=== PATIENT | female | born 1985 | race Caucasian/White ===

== ENCOUNTER → 2016-10-29 | Outpatient (CLI) | payer BC ==
[~2016-10-29] MED LIST: IBUP-1547 PO; PREN-92 PO
--- NOTE | 2016-10-29 12:54 | DI ---
Indication: ITS.REASON: O36.62X Maternal care for excessive growth PROCEDURE: US OB COMPLETE >/= 14WKS: Encounter: Initial Age by provided LMP is 21 weeks and 1 days correlating to an CHIVO of March 10, 2017. Comparison: None PROCEDURE: US OB COMPLETE >/= 14WKS: Technique: Grayscale and color Doppler transabdominal sonographic imaging was performed. Findings: There is a single living intrauterine gestation in breech lie. Placenta is posterior without previa. Quantity of amniotic fluid is normal. The cervix is normal length and closed. Amniotic fluid index is normal at 14.2 cm. Largest vertical pocket in the right upper quadrant is 4.7 cm. Survey of anatomy, including lateral ventricles, cavum septum, posterior fossa, spine, four chamber view of the heart, stomach, kidneys, bladder, and three vessel orthotopic cord insertion are normal. In addition, all long bones in both upper and lower extremities and both hands and feet are present. Coronal view of the nose and lips and sagittal facial profile are unremarkable. heart beats regularly at 136 beats per minute. biometry: Biparietal diameter: 4.65 cm 20 weeks and 1 days (11 percentile). Head circumference: 18.35 cm 20 weeks and 6 days (23 percentile). Abdominal circumference: 15.97 cm 21 weeks and 1 days (48 percentile). Femur Length: 3.66 cm 21 weeks and 5 days (58 percentile). biometrics are internally concordant and consistent with an estimated gestational age of 21 weeks and 0 days. Estimated weight is 408 grams (49 percentile by LMP and 57 percentile by AUA method). Impression: 1. Single living intrauterine gestation with age by provided LMP of 21 weeks and 1 days. This correlates to an CHIVO of March 10, 2017. 2. Best estimate of gestational age on today's exam is 21 weeks and 0 days, correlating to an CHIVO of March 11, 2017. 3. Normal survey of anatomy. .
== END ==
LOC: IMA 10:41
PROVIDERS: ATTEND Obstetrics & Gynecology
DX: O36.62X0 Maternal care for excessive fetal growth, second trimester, not applicable or unspecified (principal)

== ENCOUNTER 2017-03-12 06:00 | Inpatient (IN) ==
[2017-03-12] MEDS ORDERED: LIDOCAINE 1% (10mg/ml) 2mL INJ PF SDV ID PRN (06:12)
[2017-03-12] MEDS ORDERED: MAG-AL + SIM ORAL LIQUID 30ml PO PRN (06:12)
[2017-03-12] MEDS ORDERED: D5LR 1,000 ML IV PRN (06:12)
[2017-03-12] MEDS ORDERED: OXYTOCIN DRIP 30 UNIT/500 ML ML IV PRN (06:12)
[2017-03-12] MEDS ORDERED: CARBOPROST 250 MCG/ML INJECTION IM PRN (06:12)
[2017-03-12] MEDS ORDERED: LR 1,000 ML IV PRN (06:12)
[2017-03-12] MEDS ORDERED: CALCIUM CARBONATE Chewable 500mg TABLET PO PRN (06:12)
[2017-03-12] MEDS ORDERED: ACETAMINOPHEN 500 MG TABLET PO PRN (06:12)
[2017-03-12] MEDS ORDERED: METHYLERGONOVINE 0.2 MG/ML INJECTION IM PRN (06:12)
--- OUTSIDE RECORDS SUMMARY | 2017-03-12 06:13 | External Medical Summary | Continuity of Care Document ---
:1985 Author Organization [facility] Address [address] [place], [place] [id number] Phone Support Name Relationship Address Phone Tatiana Day spouse [address] [place] [address] [phone] [place] [address] Allergies, Adverse Reactions, Alerts Substance Reaction Severity Status No Known Drug Allergies Unknown Active Medications Medication Instructions Dosage Effective Dates Status Comments (start - stop) 28 mg take 1 by Oral route Not Available - Active iron-800 mcg every day tablet Problems Condition Effective Dates (start - stop) Clinical Status Pap Smear Screening, Cervix - Follow-Up, Routine - Encounter for suprvsn of normal - , third trimester 32 weeks gestation of - Encntr screen for infections w sexl - mode of transmiss Encounter for screening for oth - infec/parastc diseases Encounter for suprvsn of normal - , first trimester 10 weeks gestation of - Encounter for screening of - mother Maternal care for excess growth, - second tri, unsp Encounter for suprvsn of normal - , second trimester 17 weeks gestation of - Velamentous insertion of umbilical - cord, third trimester Velamentous insertion of umbilical cord, third tri Velamentous insertion of umbilical cord, third tri Exposure to cat feces Pap Smear Screening, Cervix 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) - (routine) w/o abn findings Encounter for suprvsn of normal - , second trimester 21 weeks gestation of - Encounter for suprvsn of normal - , second trimester 25 weeks gestation of - 28 weeks gestation of - Encounter for suprvsn of normal - , third trimester Encounter for suprvsn of normal - , third trimester 30 weeks gestation of - Encounter for suprvsn of normal - , third trimester 34 weeks gestation of - Active Procedures Procedure Date OB Visit No 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 700 Provider: Health ELLIOT, , third 7 Medical Dez PO Box [email or web address] weeks Hospers Ty Raya, 1522, gestation of [place] Bravo, 120, [facility] [place] [facility] [id number], [place], [facility] 120, [place] [id number] [place], tel: , . LYNN, tel: [phone]. [id number] tel:[phone] Ysabel Peter Encounter for Ty Referring In Womens suprvsn of normal 9-201 Dez. 700 Provider: Health ELLIOT, , third 7 Medical Dez PO Box [email or web address] weeks Hospers Ty Raya 1522, gestation of [place] Bravo, 120, Medical [place] [facility] [id number], [place], [facility] 120, [place] [id number] [place], tel: , . LYNN, tel: [phone]. [id number] tel:[phone] Ysabel Peter Encounter for Ty Referring In Womens suprvsn of normal 6-201 Dez. 700 Provider: Health ELLIOT, , third 7 Medical Dez PO Box [email or web address] weeks Center Ty Raya, 1522, gestation of [place] Bravo, 120, Medical [place] [facility] [id number], [place], [place] 120, [place] [id number] [place], tel: , [place]. [place], tel: [phone]. [id number] tel:[phone] Ysabel Peter 28 weeks Dec- Ty Referring In Womens gestation of 3-201 Dez. 700 Provider: Health ELLIOT, pregnancyEncounte 7 Medical Dez PO Box r for suprvsn of Hospers Ty R, 1522, normal , [place] Bravo, third trimester 120, Medical [place] [facility] [id number], [place], [place] 120, [place] [id number] [place], tel: , [place]. [place], tel: [phone]. [id number] tel:[phone] Ysabel Peter Encounter for Gurjit-2 Ty Referring In Womens suprvsn of normal 2-201 [place]. 700 Provider: Cami ZARATE, , second 7 Medical Dez PO Box [email or web address] weeks Center Ty R, 1522, gestation of [place] Bravo, 120, Medical [place] [facility] [id number], [place], [place] 120, [place] [id number] [place], tel: , [place]. [place], tel: [phone]. [id number] tel:[phone] Ysabel Peter Encounter for May-2 Ty Referring In Womens suprvsn of normal 3-201 [place]. 700 Provider: Cami ZARATE, , second 7 Medical Dez PO Box [email or web address] weeks Center Ty R, 1522, gestation of [place] Bravo, 120, Medical [place] [facility] [id number], [place], [place], [place] [id number] [place], tel: , [place]. [place], tel: [phone]. [id number] tel:[phone] Ysabel Peter Maternal care for Apr-2 Ty Referring In Womens excess 7-201 Dez. 700 Provider: Health ELLIOT, growth, second 7 Medical Dez PO Box tri, Center Ty R, 1522, unspEncounter for [place] Bravo, suprvsn of normal 120, Medical [place], , second [facility] [id number], [email or web address] weeks [place], [facility] 120, [place] gestation of [id number] [place], tel: , [place]. [place], tel:[phone]. [id number] tel:[phone] Ysabel Peter Encntr screen for Mar-0 Ty Referring In Womens infections w sexl 7- [place]. 700 Provider: Cami ZARATE, mode of 7 [facility], 1522, r for screening , [place] [address] [place], for oth 120, Medical [place], [facility] [id number], diseasesEncounter [place], [facility] 120, [place] for suprvsn of [id number] [place], tel: normal , , [place]. [place], first [email or web address] tel:[phone]. weeks gestation [id number] tel: of [phone] pregnancyEncounte r for screening of mother Ysabel Peter Pap Smear Dec- Sophia Referring In Womens Screening, [place]. Provider: Cami ZARATE, CervixPap Smear [address] [place] [address] Screening, [facility] Ty R, 1522, CervixEncntr for [place] [address] [place], commercial housekeeper exam , [facility], (general) 120, Hospers [id number], (routine) w/o abn [place], [facility] 120, [place] findings [place], tel:[phone] [place], , [place]. [id number]. tel: tel: [phone] Ysabel Peter May-1 Ty Referring In Womens Follow-Up, 0-201 [place]. 700 Provider: Cami ZARATE, Routine 6 [facility] Ty Raya, 1522, Dr [place] [address] [place], 120, Medical [place] [facility] [id number], [place], [facility] 120, [place] [id number] [place], tel: , [place]. [place], tel:[phone]. [id number] tel:[phone] Ysabel Peter Velamentous Mar-0 Bled[place] Referring In Womens insertion of 9-201 [place]. Provider: Cami ZARATE, umbilical cord, 6 700 Dez PO Box third tri [facility] Ty R, 1522, Center [address], [facility], 120, Hospers [id number], [place], [facility] 120, [place] BAILEY, tel:+ [phone] [place], , [place]. [id number]. tel: tel:+ [phone] Associates [place] Velamentous Mar-0 Ty Referring In Womens Ultrasound insertion of 9-201 Dez. 700 Provider: Cami ZARATE, umbilical cord, 6 Medical Dez PO Box third trimester Center Ty R, 1522, , [place] 700 [place], 120, Medical [place] [facility] [id number], [place], [facility] 120, [place] [id number] [place], tel:+ , [place]. [place], tel: [phone]. [id number] tel:[phone] Ysabel Peter Velamentous Feb-2 Ty Referring In Womens insertion of 5-201 Dez. 700 Provider: Cami ZARATE, umbilical cord, 6 Medical Dez PO Box third tri Hospers Ty R, 1522, , [place] [address] [place], 120, Medical [place] [facility] [id number], [place], [facility] 120, [place] [id number] [place], tel:+ , [place]. [place], tel: [phone]. [id number] tel:[phone] Ysabel Peter Exposure to cat David-2 Ty Referring In Womens feces 8-201 Dez. 700 Provider: Cami ZARATE, 6 [facility] Box Hospers Ty R, 1522, , [place] 700 [place], 120, Medical [place] [facility] [id number], [place], [facility] 120, [place] [id number] [place], tel: , [place]. [place], tel: [phone]. [id number] tel:[phone] Ysabel Peter Oct-2 Ty Referring In Womens 2-201 Dez. 700 Provider: Cami ZARATE, 5 Medical [facility] Box Center Ty Raya, 1522, , [place] Jacqueline Paige, 120, Medical [place] BAILEY, Hospers [id number], [place], [place] 120, [place] [id number] [place], tel: , [place]. [place], tel: [phone]. [id number] tel:[phone] [facility] In Womens 9-201 [facility], 3 700 [facility] 1522, Hospers Dr Grec[place], [place], 120, [id number], Peter, [facility], tel: [phone] , [place]. tel: [phone] Family History Family Member Diagnosis Age At Onset Maternal Grandfather Cancer, colon No family history of Lung Disease Paternal Grandfather Diabetes mellitus No family history of Osteoporosis No family history of Uterine Cancer No family history of Venous Thrombosis No family history of Stroke No family history of Epilepsy No family history of Ovarian Cancer Paternal Grandfather Cardiovascular Disease No family history of Hypertension No family history of Pulmonary Embolism No family history of Breast Cancer No family history of Kidney Problems No family history of Thyroid Disorder Immunizations Vaccine Date Status Comments Tdap completed Source: New Immunization Record Influenza, seasonal, injectable, completed Source: New Immunization Record preservative free, 3 yrs or older Payers Payer name Insurance type Covered republican ID Authorization(s) [facility] [id number] [facility] [id number] [facility] [id number] Social History Type Description Quantity Date Captured Alcohol Use Details No Caffeine Use Details Unknown Tobacco Use Status Unknown Smoking Status Never smoker Vital Signs Date / Height Weight BMI Pulse Blood Temperature Respiratory Body Head BMI Time: Rate Pressure Rate Surface Circumference percentile Area 247.50 38.7 lbs 6 mm[Hg] 4:13 kg/m PM eter (2) Chief Complaint And Reason For Visit Unknown Chief Complaint And Reason For Visit Reason For Referral Reason For Referral Unknown Plan Of Care Date Type Action Status Goal Lifestyle education regarding completed diet Appointment Laura Day BOOKED Appointment Luara Day BOOKED Appointment Laura Day BOOKED Future Order: Radiology Order Ultrasound OB Follow-up ([id number]) Ordered Future Order: Lab Order Pap Smear With HPV Reflex If Ordered ASCUS ([id number]) Date Type Problem Goal Intervention Status Start Date Unknown. History Of Present Illness Encounter Date Complaint History Of Present Illness This patient has no known history of present illness Functional Status Encounter Date Functional Assessment Cognitive Assessment Unknown Medications Administered Medication Instructions Dosage Effective Dates (start - stop) Status Comments Drug Treatment Unknown Instructions Date Instruction Additional Information toxoplasmosis precautions (cats / raw meat) sexual activity exercise indications for ultrasound influenza vaccine environmental / work hazards travel use of any medications (including supplements, vitamins, herbs, OTC drugs) domestic violence seat belt use childbirth classes / hospital facilities hospital registration HIV and other routine tests risk factors identified by history anticipated course of care nutrition and weight gain counseling, special diet genetic testing Lifestyle education regarding diet Related to Body mass index 34.0-34.9 Giving encouragement to exercise Related to Body mass index 34.0-34.9
--- OUTSIDE RECORDS SUMMARY | 2017-03-12 06:13 | External Medical Summary | Continuity of Care Document ---
:1985 Author Organization [facility] Allergies Active Description Code Type Severity Reaction Onset Reported/ Identified Relationship Clinical to Patient Status Yes No Known 97392 3 N/A N/A Drug 0 Allergies Medications Medication Packaging Start Date Stop Date Route Dosage Sig Capsule 10/06/2015 10/12/2015 CEPHALEXIN take 1 capsule by ORAL route 4 times every day for 7 days Problems Date Dx Coded Attending Type Code Diagnosis Diagnosed By 05/01/2015 Dez Crawford Z34.82 Encounter for suprvsn of normal , second trimester 05/01/2015 Dez Crawford Z3A.20 20 weeks gestation of 08/16/2015 Dez Crawford O43.123 Velamentous insertion of umbilical cord, third trimester 08/16/2015 Dez Crawford3A.35 35 weeks gestation of 08/16/2015 Christi Bledsoe O43.123 Velamentous insertion of umbilical cord, third tri 08/16/2015 Christi Bledsoe Z36 Screening 08/16/2015 Christi Bledsoe3A.35 35 weeks gestation of Procedures Code Description Performed By Performed On 05/01/2015 74026 Ultrasnd exam of preg uterus, compl 08/16/2015 41675 Ultrasnd preg uterus, flwup/repeat OB 08/16/2015 31639 Visit No Charge Results Encounters ACCT No. Visit Discharge Status Pt. Type Provider Facility Loc./Unit Complaint Date/Time [id number] 02/19/2017 02/19/2017 [facility] Outpatient Ty, 16:15:00 23:59:59 Dez Raya [id number] 01/30/2017 01/30/2017 [facility] Outpatient Ty, 13:30:00 23:59:59 Dez Raya [id number] 01/15/2017 01/15/2017 [facility] Outpatient Ty, 16:15:00 23:59:59 Dez Raya [id number] 01/01/2017 01/01/2017 [facility] Out[facility] Ty, 16:30:00 23:59:59 Dez Raya [id number] 12/31/2016 12/31/2016 [facility] Outpatient Ty, 15:53:00 23:59:59 Dez Raya [id number] 12/19/2016 12/19/2016 [facility] Outpatient Ty, 10:40:00 23:59:59 Dez Raya [id number] 11/28/2016 11/28/2016 [facility] Outpatient Ty, 09:30:00 23:59:59 Dez Raya [id number] 10/29/2016 10/29/2016 [facility] Outpatient Ty, 11:30:00 23:59:59 Dez Raya [id number] 10/29/2016 10/29/2016 [facility] Outpatient Ty, 08:20:00 23:59:59 Dez Raya [id number] 10/03/2016 10/03/2016 [facility] Outpatient Ty, 09:45:00 23:59:59 Dez Raya [id number] 08/13/2016 08/13/2016 [facility] Outpatient Ty, 09:00:00 23:59:59 Dez Raya [id number] 07/18/2016 07/18/2016 [facility] Outpatient Ty, 14:19:00 23:59:59 Dez Raya [id number] 01/03/2016 01/03/2016 [facility] Outpatient Sophia, 11:00:00 23:59:59 [place] [id number] 10/17/2015 10/17/2015 [facility] Outpatient Ty, 10:00:00 23:59:59 Dez Raya [id number] 10/06/2015 10/06/2015 [facility] Outpatient Ty, 11:26:00 23:59:59 Dez Raya [id number] 09/11/2015 09/11/2015 [facility] Outpatient Ty, 13:47:00 23:59:59 Dez Raya [id number] 09/06/2015 09/06/2015 [facility] Outpatient Ty, 16:30:00 23:59:59 Dez Raya [id number] 08/31/2015 08/31/2015 [facility] Outpatient Ty, 09:00:00 23:59:59 Dez Raya [id number] 08/23/2015 08/23/2015 [facility] Outpatient Ty, 16:30:00 23:59:59 Dez Raya [id number] 08/16/2015 08/16/2015 [facility] Outpatient Bledsoe, 09:15:00 23:59:59 Christi Short [id number] 08/16/2015 08/16/2015 [facility] Outpatient Ty, 08:45:00 23:59:59 Dez Raya [id number] 08/03/2015 08/03/2015 [facility] Outpatient Ty, 09:10:00 23:59:59 Dez Raya [id number] 07/19/2015 07/19/2015 [facility] Outpatient Ty, 16:05:00 23:59:59 Dez Raya [id number] 07/19/2015 07/19/2015 [facility] Outpatient Ty, 00:00:00 23:59:59 Dez Raya [id number] 07/12/2015 07/12/2015 [facility] Outpatient Ty, 14:48:00 23:59:59 Dez Raya [id number] 07/06/2015 07/06/2015 [facility] Outpatient Ty, 09:30:00 23:59:59 Dez Raya [id number] 06/01/2015 06/01/2015 [facility] Outpatient Ty, 09:30:00 23:59:59 Dez Raya [id number] 05/01/2015 05/01/2015 [facility] Outpatient Ty, 09:00:00 23:59:59 Dez Raya [id number] 05/01/2015 05/01/2015 [facility] Outpatient Ty, 08:45:00 23:59:59 Dez Raya [id number] 03/30/2015 03/30/2015 [facility] Outpatient Ty, 09:00:00 23:59:59 Dez Raya [id number] 03/30/2015 03/30/2015 [facility] Outpatient Ty, 00:00:00 23:59:59 Dez Raya [id number] 03/07/2015 03/07/2015 [facility] Outpatient Ty, 10:01:00 23:59:59 Dez Raya [id number] 03/02/2015 03/02/2015 [facility] Outpatient Ty, 14:40:00 23:59:59 Dez Raya [id number] 02/07/2015 02/07/2015 [facility] Outpatient Ty, 10:52:00 23:59:59 Dez Raya [id number] 03/06/2017 Document 10:30:00 Registration [id number] 02/26/2017 Document 16:15:00 Registration
--- OUTSIDE RECORDS SUMMARY | 2017-03-12 06:13 | External Medical Summary | Continuity of Care Document ---
:1985 Author Organization [facility] Address [address] [place], [place] [id number] Phone Support Name Relationship Address Phone Tatiana Day spouse Venkatesh Chualar [phone] [place] [address] Allergies, Adverse Reactions, Alerts Substance Reaction Severity Status No Known Drug Allergies Unknown Active Medications Medication Instructions Dosage Effective Dates Status Comments (start - stop) 28 mg take 1 by Oral route Not Available - Active iron-800 mcg every day tablet Problems Condition Effective Dates (start - stop) Clinical Status Pap Smear Screening, Cervix - Follow-Up, Routine - Encntr screen for infections w sexl - mode of transmiss Encounter for screening for oth - infec/parastc diseases Encounter for suprvsn of normal - , first trimester Encounter for screening of - mother 10 weeks gestation of - Maternal care for excess growth, - second tri, unsp Encounter for suprvsn of normal - , second trimester 17 weeks gestation of - Velamentous insertion of umbilical - cord, third trimester Velamentous insertion of umbilical cord, third tri Velamentous insertion of umbilical cord, third tri Exposure to cat feces 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 Pap Smear Screening, Cervix Encounter for suprvsn of normal - , second trimester 25 weeks gestation of - Encounter for suprvsn of normal - , second trimester 21 weeks gestation of - Encounter for suprvsn of normal - , third trimester 32 weeks gestation of - Encounter for suprvsn of normal - , third trimester 30 weeks gestation of - Encounter for suprvsn of normal - , third trimester 28 weeks gestation of - Active Procedures Procedure Date Unknown Results Test Name Date and Time Measure Units Reference Range Abnormal Flag Comments Unknown Advance Directives Directive Yes / No Effective Date File Name Unknown Encounters Encounter Practice Location Reason(s) Diagnoses Date Provider Care Team Description For Visit Members Ysabel Peter Encounter for Ty Referring In Womens suprvsn of normal 9-201 Dez. 700 Provider: Health PA, , third 7 Medical Dez [address] [email or web address] weeks Center Ty Raya, 1522, gestation of [place] Bravo, 120, [facility] [id number], [facility] 120, [place] [id number] [place], tel: , . LYNN, tel: [phone]. [id number] tel:[phone] Ysabel Peter Encounter for Surinder-2 Ty Referring In Womens suprvsn of normal 6-201 [place]z. 700 Provider: Health ELLIOT, , third 7 Medical Dez PO Box [email or web address] weeks Center Ty Raya, 1522, gestation of [place] Bravo, 120, [facility] [place] [facility] [id number], [facility] 120, [id number] [place], tel: , . LYNN, tel: [phone]. [id number] tel:[phone] Ysabel Peter Surinder-2 Ty In Womens 5-201 Dez. 700 Health ELLIOT, 7 Medical PO Box Center 1522, [place] Bravo, 120, [place] [id number], [id number] tel: , . tel: [phone] Ysabel Peter Encounter for Surinder-1 Ty Referring In Womens suprvsn of normal 3-201 [place]z. 700 Provider: Health PA, , third 7 Medical Dez PO Box [email or web address] weeks Center Ty R, 1522, gestation of [place] Bravo [place], 120, [facility] [id number], [place], [facility] 120, [place] [id number] [place], tel: , [place]. [place], tel: [phone]. [id number] tel:[phone] Ysabel Peter Encounter for Gurjit-2 Ty Referring In Womens suprvsn of normal 2-201 [place]. 700 Provider: Cami ZARATE, , second 7 Medical Dez PO Box [email or web address] weeks Center Ty R, 1522, gestation of [place] Bravo, 120, [facility] [id number], [facility] 120, [id number] [place], tel: , [place]. [place], tel: [phone]. [id number] tel:[phone] Ysabel Peter Encounter for May-2 Ty Referring In Womens suprvsn of normal 3-201 [place]. 700 Provider: Cami ZARATE, , second 7 Medical Dez PO Box [email or web address] weeks Center Ty R, 1522, gestation of [place] Bravo, 120, [facility] [id number], [facility] 120, [id number] [place], tel: , [place]. [place], tel: [phone]. [id number] tel:[phone] Ysabel Peter Maternal care for Apr-2 Ty Referring In Womens excess 7-201 [place]. 700 Provider: Cami ZARATE, growth, second 7 Medical Dez PO Box tri, Center Ty R, 1522, unspEncounter for [place] Bravo, [facility] normal 120, Medical [place], , second [facility] [id number], [email or web address] weeks LYNN [facility] 120, [place] gestation of [id number] [place], tel: , [place], tel: [phone]. [id number] tel:[phone] Ysabel Peter Encntr screen for Mar-0 Ty Referring In Womens infections w sexl 7-201 [place]. 700 Provider: Health PA, mode of 7 [facility] Box transmissEncounte [place] Ty R, 1522, r for screening , [place] [address] [place], for oth 120, Medical [place], [facility]c [facility] [id number], diseasesEncounter [place], [facility] 120, [place] for suprvsn of [id number] [place], tel:+ normal , , [place]. [place], first tel: [phone]. 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 Provider: Cami ZARATE, (routine) w/o abn [address] [place] [address] findingsPap Smear [facility] Ty R, 1522, Screening, [place] [address] [place], CervixPap Smear , [facility], Screening, Cervix 120, [place] [id number], [facility] 120, [place] B[place]LEY, tel:[phone] [place], , [place]. [id number]. tel: tel: [phone] [facility] [place] October-1 Ty Referring In Womens Follow-Up, 0-201 [place]. 700 Provider: Cami ZARATE, Routine 6 Medical [facility] Ty R, 1522, Dr [facility] Jacqueline Paige, 120, Medical [place] BAILEY Mor Bravo [id number], [place], [facility] 120, [place] [id number] [place], tel: , [place]. [place], tel: [phone]. [id number] tel:[phone] [facility] [place] Velamentous Mar-0 Bledsoe Referring In Womens insertion of 9-201 [place]. Provider: Cami ZARATE, umbilical cord, [address] [place] [address] third tri [facility] Ty R, 1522, Center Jacqueline Paige, , [facility], 120, Center [id number], [facility] 120, [place] B[place], tel:[phone] [place], , [place]. [id number]. tel: tel:[phone] [facility] [place] Velamentous Mar-0 Ty Referring In Womens Ultrasound insertion of - Dez. 700 Provider: Cami ZARATE, umbilical cord, 6 Medical [place] PO Box third trimester Center [address], [place] Jacqueline Paige, 120, Medical [place] BAILEY, [place] [id number], [place], [place] 120, [place] [id number] [place], tel: , [place]. [place], tel: [phone]. [id number] tel:[phone] Ysabel Peter Velamentjuaquin Feb-2 Ty Referring In Womens insertion of 5-201 [place]z. 700 Provider: Cami ZARATE, umbilical cord, 6 Medical [facility] Box third tri Center [address], [place] Jacqueline Paige, 120, Medical [place] [facility] [id number], [place], [place] 120, [place] [id number] [place], tel: , [place]. [place] tel: [phone]. [id number] tel:[phone] Ysabel Peter Exposure to cat David-2 Ty Referring In Womens feces 8-201 [place]z. 700 Provider: Cami ZARATE, 6 Medical [facility] Box Center [address], [place] [address] [place], 120, Medical [place] [facility] [id number], [place], [place] 120, [place] [id number] [place], tel: , [place]. [place], tel: [phone]. [id number] tel:[phone] Ysabel Peter Oct-2 Ty Referring In Womens 2-201 [place]z. 700 Provider: Cami ZARATE, 5 Medical [facility] Box Center [address], [place] Jacqueline Paige, 120, Medical [place] BAILEY, [place] [id number], [place], [place] 120, [place] [id number] [place], tel: , [place]. [place] tel: [phone]. [id number] tel:[phone] Associates Feb-1 Luis Fernando In Womens 9-201 Cande. Cami ZARATE, 3 700 PO Box [facility] 1522, M[address], [place], 120, [id number], [facility] [place], tel:[phone] , . tel: [phone] Family History Family Member Diagnosis Age At [...] older Payers Payer name Insurance type Covered democrat ID Authorization(s) [facility] [id number] [facility] [id number] [facility] [id number] Social History Type Description Quantity Date Captured Unknown Vital Signs Date / Height Weight BMI Pulse Blood Temperature Respiratory Body Head BMI Time: Rate Pressure Rate Surface Circumference percentile Area Unknown Chief Complaint And Reason For Visit Unknown Chief Complaint And Reason For Visit Reason For Referral Reason For Referral Unknown Plan Of Care Date Type Action Status Goal Lifestyle education regarding completed diet Appointment Laura Day BOOKED Future Order: Radiology Order Ultrasound OB Follow-up ([id number]) Ordered Future Order: Lab Order Pap Smear [...] belt use childbirth classes / hospital facilities HIV and other routine tests risk factors identified by history anticipated course of care nutrition and weight gain counseling, special diet hospital registration genetic testing Lifestyle education regarding diet Related to Body mass index 34.0-34.9 Giving encouragement to exercise Related to Body mass index 34.0-34.9
--- OUTSIDE RECORDS SUMMARY | 2017-03-12 06:13 | External Medical Summary | Continuity of Care Document ---
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 Pap Smear Screening, Cervix Encounter for suprvsn of normal - , second trimester 25 weeks gestation of - Encounter for suprvsn of normal - , second trimester 21 weeks gestation of - Encounter for suprvsn of normal - , third trimester 30 weeks gestation of - Active Procedures Procedure Date OB Visit No Charge Hemoglobin count, colorimetric Hematocrit blood count Glucose test Venpnctr fngr/heel/ear stick routne Results Test Name Date and Time Measure Units Reference Range Abnormal Flag Comments Panel Description: Glucose [Mass/volume] in Serum or Plasma --1 hour post 50 g glucose PO GLUCOSE, GESTATIONAL 90 mg/dL <140 N Test performed at [facility] SCREEN (50G)-140 11:21:00 DIAGNOSTICS [id number] [place] [address]Yuwehkbx: DEBBIE HAWK DO,MPH Panel Description: HEMOGLOBIN + HEMATOCRIT HEMOGLOBIN 11:21:00 11.9 g/dL 11.7-15.5 N HEMATOCRIT 11:21:00 35.4 % 35.0-45.0 N Test performed at [facility] [id number] [place] [address]Joyrujpl: DEBBIE HAWK DO,MPH Advance Directives Directive Yes / No Effective Date File Name Unknown Encounters Encounter Practice Location Reason(s) Diagnoses Date Provider Care Team Description For Visit Members Ysabel Peter Encounter for Dec- Ty Referring In Womens suprvsn of normal 6-201 [place]z. 700 Provider: Health PA, , third 7 Medical Dez PO Box [email or web address] weeks Center Ty R, 1522, gestation of [place] Bravo 700 [facility], 120, [facility] [id number], [place], [facility] 120, [place] [id number] [place], tel: , [place]. LYNN, [address]39[address] tel: [phone]. [id number] tel:[phone] Ysabel Peter Encounter for Dec- Ty Referring In Womens suprvsn of normal 3-201 Dez. 700 Provider: Health PA, , third 7 Medical Dez PO Box [email or web address] weeks Center Ty R, 1522, gestation of [place], 120, [facility] [id number], [place], [facility] 120, [place] [id number] [place], tel: , [place]. [place], tel: [phone]. [id number] tel:[phone] Ysabel Peter Encounter for Gurjit-2 Ty Referring In Womens suprvsn of normal 2-201 [place]. 700 Provider: Health ELLIOT, , second 7 Medical Dez PO Box [email or web address] weeks Center Ty R, 1522, gestation of [place] Bravo, 120, [facility] [id number], [facility] 120, [place] [id number] [place], tel: , [place]. [place], tel: [phone]. [id number] tel:[phone] Ysabel Peter Encounter for May-2 Ty Referring In Womens suprvsn of normal 3-201 [place]. 700 Provider: Health ELLIOT, , second 7 Medical Dez PO Box [email or web address] weeks Center Ty R, 1522, gestation of [place] Bravo, 120, [facility] [id number], [facility] 120, [place] [id number] [place], tel: , [place]. [place], tel: [phone]. [phone] tel:[phone] Ysabel Peter Maternal care for Apr-2 Ty Referring In Womens excess 7-201 [place]. 700 Provider: Health ELLIOT, growth, second 7 Medical Dez PO Box tri, Center Ty R, 1522, unspEncounter for [place] Bravo, suprn of normal 120, Medical [place], , second [facility] [id number], [email or web address] weeks LYNN [facility] 120, [place] gestation of [id number] [place], tel:316 , [place]. [place], tel: [phone]. [id number] tel:[phone] Ysabel Peter Encntr screen for Mar-0 Ty Referring In Womens infections w sexl 7-201 [place]. 700 Provider: Cami ZARATE, mode of 7 [facility] Box transmissEncounte [place] Ty R, 1522, r for screening , [place] [address] [facility], for oth 120, Medical [place], infec/parastc [facility] [id number], diseasesEncounter [place], [facility] 120, [place] for suprvsn of [id number] [place], tel:+ normal , , [place]. [place], first tel: [phone]. 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 Provider: Cami ZARATE, (routine) w/o abn [address] [place] [address] findingsPap Smear [facility] Ty R, 1522, Screening, [place] [address] [facility], CervixPap Smear , [facility], Screening, Cervix 120, [place] [id number], [place] [address], [place] BAILEY, tel:[phone] [place], , [place]. [id number]. tel: tel: [phone] Ysabel Peter October- Ty Referring In Womens Follow-Up, 0- [place]. 700 Provider: Cami ZARATE, Routine 6 Medical [facility] Ty R, 1522, Dr [facility] Jacqueline Paige, 120, Medical [place] BAILEY Mor Bravo [id number], [place], [facility] 120, [place] [id number] [place], tel: , [place]. [place], tel: [phone]. [id number] tel:[phone] Ysabel Peter Velamentous Mar-0 [place] Referring In Womens insertion of 9-201 [place]. Provider: Cami ZARATE, umbilical cord, [address] [place] [address] third tri [facility] Ty Raya, 1522, Center Jacqueline Paige, , [facility], 120, Center [id number], [facility] 120, [place] BAILEY, tel:[phone] [place], , [place]. [id number]. tel: tel: [phone] [facility] [place] Velamentous Mar-0 Ty Referring In Womens Ultrasound insertion of - Dez. 700 Provider: Cami ZARATE, umbilical cord, 6 Medical [place] PO Box third trimester Center Ty Raya 1522, , [place] 700 [facility], 120, Medical [place] [facility] [id number], [place], [place] 120, [place] [id number] [place], tel: , [place]. [place] tel: [phone]. [id number] tel:[phone] [facility] [place] Velamentous Feb-2 Ty Referring In Womens insertion of 5-201 Dez. 700 Provider: Cami ZARATE, umbilical cord, 6 Medical [facility] Box third tri Center Ty Raya 1522, , [facility] [facility], 120, Medical [place] [facility] [id number], [place], [place] 120, [place] [id number] [place], tel: , [place]. [place] tel: [phone]. [id number] tel:[phone] Ysabel Peter Exposure to cat David-2 Ty Referring In Womens feces 8-201 [place]z. 700 Provider: Cami ZARATE, 6 [facility] Box [place] Ty Raya, 15[address]Dr, [place] [address] [facility], 120, Medical [place] [facility] [id number], [place], [place] 120, [place] [id number] [place], tel: , [place]. [place], tel: [phone]. [id number] tel:[phone] Ysabel Peter Oct-2 Ty Referring In Womens 2-201 [place]z. 700 Provider: Cami ZARATE, 5 Medical [facility] Box Center Ty Raya 1522Dr, [place] 700 [facility], 120, Medical [place] [facility] [id number], [place], [place] 120, [place] [id number] [place], tel: , [place]. [place] tel: [phone]. [id number] tel:[phone] Associates Feb-1 Luis Fernando In Womens 9-201 [place]. Cami ZARATE, 3 700 [facility] 1522, Center Dr G[place], [facility], 120, [id number], [facility] [place], tel:[phone] [phone] , . tel: [phone] Family History Family Member Diagnosis Age At [...] name Insurance type Covered democrat ID Authorization(s) [facility] [id number] [facility] [id number] [facility] [id number] Social History Type Description Quantity Date Captured Alcohol Use Details No Caffeine Use Details Unknown Tobacco Use Status Unknown Smoking Status Never smoker Vital Signs Date / Height Weight BMI Pulse Blood Temperature Respiratory Body Head BMI Time: Rate Pressure Rate Surface Circumference percentile Area 237.80 37.2 / lbs 4 mm[Hg] 11:14 kg/m AM eter (2) Chief Complaint And Reason For Visit Unknown Chief Complaint And Reason For Visit Reason For Referral Reason For Referral Unknown Plan Of Care Date Type Action Status Goal Lifestyle education regarding completed diet Appointment Laura Day BOOKED Appointment Laura Day BOOKED Future Order: Radiology Order Ultrasound OB Follow-up ([id number]) Ordered Future Order: Lab Order Pap Smear [...]
--- OUTSIDE RECORDS SUMMARY | 2017-03-12 06:13 | External Medical Summary | Continuity of Care Document ---
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) w/o abn findings Encounter for suprvsn of normal - , second trimester 21 weeks gestation of - Encounter for suprvsn of normal - , second trimester 25 weeks gestation of - Encounter for suprvsn of normal - , third trimester 32 weeks gestation of - 28 weeks gestation of - Encounter for suprvsn of normal - , third trimester Encounter for suprvsn of normal - , third trimester 30 weeks gestation of - Encounter for screening of - mother Encounter for suprvsn of normal - , third trimester 37 weeks gestation of - Active Procedures Procedure Date OB Visit No Charge Results Test Name Date and Time Measure Units Reference Range Abnormal Flag Comments Unknown Advance Directives Directive Yes / No Effective Date File Name Unknown Encounters Encounter Practice Location Reason(s) Diagnoses Date Provider Care Team Description For Visit Members Ysabel Peter Encounter for Feb-1 Ty Referring In Womens 3-201 [place]. 700 Provider: Cami ZARATE, screening of 7 Medical [place] [address] motherEncounter [place] Ty R, 1522, for suprvsn of [place] Bravo, normal , 120, Medical [place], third [email or web address] [place] [id number], weeks gestation [place], [facility] 120, [place] of [id number] [place], tel:+2 , [place]. [place], tel: [phone]. [phone] tel:[phone] Ysabel Peter Encounter for Aug-2 Ty Referring In Womens suprvsn of normal 4-201 [place]. 700 Provider: Cami ZARATE, , third 7 Medical [facility] Box [email or web address] weeks Center Ty R, 1522, gestation of [place] Brav[place], 120, Medical LYNN, [place] [id number], [place], [place] 120, [place] [id number] [place], tel:2 , . [place], tel: [phone]. [id number] tel:[phone] Ysabel Peter Encounter for Aug-0 Ty Referring In Womens suprvsn of normal 9-201 [place]. 700 Provider: Health ELLIOT, , third 7 Medical Dez PO Box [email or web address] weeks Center Ty R, 1522, gestation of [place] Bravo, 120, Medical [place] [facility] [id number], [place], [place] 120, [place] [id number] [place], tel:+ , [place]. [place], tel: [phone]. [id number] tel:[phone] Ysabel Peter Encounter for Surinder-2 Ty Referring In Womens suprvsn of normal 6-201 Dez. 700 Provider: Health PA, , third 7 Medical Dez PO Box [email or web address] weeks Center Ty R, 1522, gestation of [place] Bravo, 120, Medical [place] [facility] [id number], [place], [facility] 120, [place] [id number] [place], tel:+ , [place]. [place], tel: [phone]. [id number] tel:[phone] Ysabel Peter 28 weeks Dec-1 Ty Referring In Womens gestation of 3-201 Dez. 700 Provider: Health ELLIOT, pregnancyEncounte 7 Medical [place] PO Box r for suprvsn of Wood Ty R, 1522, normal , [place] Bravo, third trimester 120, Medical [place] [facility] [id number], [place], [place] 120, [place] [id number] [place], tel:+ , [place]. [place], tel: [phone]. [id number] tel:[phone] Ysabel Peter Encounter for Gurjit-2 Ty Referring In Womens suprvsn of normal 2-201 Dez. 700 Provider: Health ELLIOT, , second 7 Medical Dez PO Box [email or web address] weeks Center Ty R, 1522, gestation of [place] Bravo, 120, Medical [place] [facility] [id number], [place], [place] 120, [place] [id number] [place], tel: , [place]. [place], tel: [phone]. [id number] tel:[phone] Ysabel Peter Encounter for October-2 Ty Referring In Womens suprvsn of normal 3-201 Dez. 700 Provider: Health ELLIOT, , second 7 Medical [facility] Box [email or web address] weeks Wood Ty R, 1522, gestation of [place] Bravo, 120, Medical [place] BAILEY, [place] [id number], [place], [facility] 120, [place] [id number] [place], tel:+ , [place]. [place], tel:[phone]. [id number] tel:[phone] Ysabel Peter Maternal care for Apr-2 Ty Referring In Womens excess [place]. 700 Provider: Cami ZARATE, growth, second 7 Medical [facility] Box tri, Wood Ty R, 1522, unspEncounter for [place] Bravo, suprvsn of normal 120, Medical [place], , second [place], Wood [id number], [email or web address] weeks LYNN, [facility] 120, [place] gestation of [id number] [place], tel: , [place]. [place], tel:[phone]. [id number] tel:[phone] Ysabel Peter Encntr screen for Mar-0 Ty Referring In Womens infections w sexl [place]. 700 Provider: Cami ZARATE, mode of 7 [facility] transmissEncounte [place] Ty R, 1522, r for screening [place] Bravo, for oth 120, Medical LYNN, [facility] [id number], diseasesEncounter [place], [facility] 120, [place] for suprvsn of [id number] [place], tel: normal , , [place]. [place], first [email or web address] tel:[phone]. weeks gestation [id number] tel: of [phone] pregnancyEncounte r for screening of mother Ysabel Peter Pap Smear Surinder-2 Sophia Referring In Womens Screening, [place]. Provider: Cami ZARATE, CervixPap Smear 6 700 [facility] Screening, [facility] Ty R, 1522, CervixEncntr for [place] Jacqueline Paige, law instructor exam [place] Bravo [facility] LYNN, (general) 120, Center [id number], (routine) w/o abn Peter, [facility] 120, [place] findings [place] BAILEY, tel:[phone] [place], , [place]. [id number]. tel: tel: [phone] Ysabel Peter May-1 Ty Referring In Womens Follow-Up, 0-201 Dez. 700 Provider: Cami ZARATE, Routine 6 [facility] PO Box Wood Ty Raya, 1522, , Perico [facility] [place], 120, Medical LYNN [facility] [id number], [place], [facility] 120, [place] [id number] [place], tel: , [place]. [place], tel:[phone]. [id number] tel:[phone] Associates [place] Velamentous Mar-0 Bledsoe Referring In Womens insertion of 9-201 [place]. Provider: Cami ZARATE, umbilical cord, [address] [place] [address] Box [facility] Ty Raya, 1522, Center Jac[address], [facility], 120, [place] [id number], [place], [facility] 120, [place] BAILEY, tel:[phone] [place] , [place]. [id number]. tel: tel: [phone] Associates [place] Velamentous Mar-0 Ty Referring In Womens Ultrasound insertion of 9-201 Dez. 700 Provider: Cami ZARATE, umbilical cord, 6 [facility] PO Box third trimester Wood Ty Raya, 1522, , Perico Jacqueline Paige, 120, Medical [place] [facility] [id number], [place], [facility] 120, [place] [id number] [place], tel: , . [place] tel:[phone]. [id number] tel:[phone] Associates [place] Velamentous Feb-2 Ty Referring In Womens insertion of 5-201 Dez. 700 Provider: Cami ZARATE, umbilical cord, 6 [facility] Box [facility] Ty Raya, 1522, , [place] [address] [place], 120, Medical [place] [facility] [id number], [place], [facility] 120, [place] [id number] [place], tel: , . [place] tel:[phone]. [phone] tel:[phone] Ysabel Peter Exposure to cat Jun- Ty Referring In Womens feces 8-201 [place]. 700 Provider: Cami ZARATE, 6 [facility] Box Wood [address] [place] [address] [place], 120, Medical [place] [facility] [id number], [place], [facility] 120, [id number] [place], tel:+ , . [place], tel: [phone]. [id number] tel:[phone] Ysabel Peter Ty Referring In Womens 2-201 [place]. 700 Provider: Cami ZARATE, 5 [facility] [address], [place] [address] [place], 120, Medical [place] [facility] [id number], [place], [facility] 120, [id number] [place], tel:+ , . [place], tel: [phone]. [id number] tel:[phone] [facility] In Womens 9-201 Cande. Health ELLIOT, [address] [place] [address] 1522, [address] Dr [place], [facility], 120, [id number], Peter, LYNN, tel: [phone] , [place]. tel: [phone] Family History Family Member Diagnosis Age At [...] Comments Tdap completed Source: New Immunization Record Tdap completed Source: New Immunization Record Influenza, seasonal, injectable, completed Source: New Immunization Record preservative free, 3 yrs or older Payers Payer name Insurance type Covered democrat ID Authorization(s) [facility] [place] [id number] [facility] [place] [id number] [facility] [place] [id number] [facility] [id number] Social History Type Description Quantity Date Captured Alcohol Use Details No Caffeine Use Details Unknown Tobacco Use Status Unknown Smoking Status Never smoker Vital Signs Date / Height Weight BMI Pulse Blood Temperature Respiratory Body Head BMI Time: Rate Pressure Rate Surface Circumference percentile Area 248.50 38.9 102/2017 lbs 2 mm[Hg] 1:29 kg/m PM eter (2) Chief Complaint And Reason For Visit Unknown Chief Complaint And Reason For Visit Reason For Referral Reason For Referral Unknown Plan Of Care Date Type Action Status Goal Lifestyle education regarding completed diet Appointment Laura Day BOOKED Appointment Laura Day BOOKED Future Order: Radiology Order Ultrasound OB Follow-up ([id number]) Ordered Future Order: Lab Order Pap Smear [...]
--- OUTSIDE RECORDS SUMMARY | 2017-03-12 06:13 | External Medical Summary | Continuity of Care Document ---
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 700 Provider: Cami ZARATE, , third 7 Medical Dez PO Box [email or web address] weeks Center Ty R, 1522, gestation of [place] Bravo, 120, Medical [place] [facility] [id number], [place], [facility] 120, [place] [id number] [place], tel: , . [place], tel: [phone]. [id number] tel:[phone] Ysabel Peter Encounter for Dec-2 Ty Referring In Womens suprvsn of normal 6-201 Dez. 700 Provider: Cami ZARATE, , third 7 Medical Dez PO Box [email or web address] weeks Center Ty R, 1522, gestation of [place] Bravo, 120, Medical [place] [facility] [id number], [place], [place] 120, [place] [id number] [place], tel: , . [place], tel: [phone]. [id number] tel:[phone] Ysabel Peter Encounter for Dec- Ty Referring In Womens suprvsn of normal 3-201 Dez. 700 Provider: Cami ZARATE, , third 7 Medical Dez PO Box [email or web address] weeks Center Ty R, 1522, gestation of [place] Brav[place], 120, Medical [place] [facility] [id number], [place], [place] 120, [place] [id number] [place], tel: , [place]. [place] tel: [phone]. [id number] tel:[phone] Ysabel Peter Encounter for Gurjit-2 Ty Referring In Womens suprvsn of normal 2-201 [place]. 700 Provider: Cami ZARATE, , second 7 Medical Dez PO Box [id number] weeks Center Ty R, 1522, gestation of [place] Bravo, 120, Medical [facility] [id number], [place], [place] 120, [place] [id number] [place], tel: , [place]. [place], tel: [phone]. [id number] tel:[phone] Ysabel Peter Encounter for May-2 Ty Referring In Womens suprvsn of normal 3-201 [place]. 700 Provider: Cami ZARATE, , second 7 Medical Dez PO Box [email or web address] weeks Center Ty R, 1522, gestation of [place] Bravo, 120, Medical [facility] [id number], [place], [facility] 120, [place] [id number] [place], tel: , [place]. [place], tel: [phone]. [phone] tel:[phone] Ysabel Peter Maternal care for Apr-2 Ty Referring In Womens excess 7-201 [place]. 700 Provider: Cami ZARATE, growth, second 7 Medical [place] PO Box tri, Anita Ty R, 1522, unspEncounter for [place] Bravo, suprvsn of normal 120, Medical [place], , second [facility] [id number], [email or web address] weeks [place], [facility] 120, [place] gestation of [id number] [place], tel:316 , [place]. [place], tel: [phone]. [id number] tel:[phone] Ysabel Peter Encntr screen for Mar-0 Ty Referring In Womens infections w sexl 7-201 [place]. 700 Provider: Cami ZARATE, mode of 7 Medical [place] PO Box transmissEncounte [place] Ty R, 1522, r for screening [place] Bravo, for oth 120, Medical [place], infec/[facility]astc [facility] [id number], diseasesEncounter [place], [place] 120, [place] for suprvsn of [id number] [place], tel: normal , , [place]. [place], first tel: [phone]. trimesterEncounte [id number] tel: r for [phone] screening of [id number] weeks gestation of Associates [place] Encntr for access rep Sophia Referring In Womens exam (general) 7-201 [place]. Provider: Cami ZARATE, (routine) w/o abn 6 700 Dez PO Box findingsPap Smear Medical Ty Raya, 1522, Screening, Center 700 [place], CervixPap Smear , [facility], Screening, Cervix 120, Anita [id number], [place], [facility] 120, [place] BAILEY, tel:[phone] [place], , [place]. [id number]. tel: tel:[phone] Ysabel Peter October- Ty Referring In Womens Follow-Up, 0-201 Dez. 700 Provider: Cami ZARATE, Routine 6 Medical Dez PO Box Center Ty R, 1522, , [place] [address] [place], 120, Medical [place] [facility] [id number], [place], [facility] 120, [place] [id number] [place], tel: , [place]. [place], tel: [phone]. [id number] tel:[phone] Ysabel Peter Velamentous Mar-0 Bledsoe Referring In Womens insertion of 9-201 [place]. Provider: Cami ZARATE, umbilical cord, 6 700 Dez PO Box third tri Medical Ty R, 1522, Center [address], [facility], 120, Anita [id number], [place], [facility] 120, [place] BAILEY, tel:[phone] [place], , [place]. [id number]. tel: tel:[phone] Ysabel Peter Velamentous Mar-0 Ty Referring In Womens Ultrasound insertion of 9-201 Dez. 700 Provider: Cami ZARATE, umbilical cord, 6 Medical Dez PO Box third trimester Center Ty R, 1522, , [facility] Jacqueline Paige, 120, Medical [place] [facility] [id number], [place], [facility] 120, [place] [id number] [place], tel: , [place]. [place] tel: [phone]. [id number] tel:[phone] Associates [place] Velamentous Feb-2 Ty Referring In Womens insertion of 5-201 [place]. 700 Provider: Health ELLIOT, umbilical cord, 6 [facility] [address], [place] [address] [place], 120, Medical [place] [facility] [id number], [place], [facility] 120, [place] [id number] [place], tel: , [place]. [place] tel: [phone]. [id number] tel:[phone] Associates [place] Exposure to cat David-2 Ty Referring In Womens feces 8-201 [place]. 700 Provider: Health ELLIOT, 6 [facility] [address], [place] [address] [place], 120, Medical [place] [facility] [id number], [place], [facility] 120, [place] [id number] [place], tel: , [place]. [place], tel: [phone]. [id number] tel:[phone] Associates [place] Mar-2 Ty Referring In Womens 2-201 [place]. 700 Provider: Cami ZARATE, 5 [facility] [address], [place] [address] [place], 120, Medical [place] [facility] [id number], [place], [facility] 120, [place] [id number] [place], tel: , [place]. [place], tel: [phone]. [id number] tel:[phone] Associates b-1 Luis Fernando In Womens 9-201 Cande. Health ELLIOT, [address] [place] [address] 1522, Mor [address], [facility], 120, [id number], Peter, LYNN, tel: [phone] , [place]. tel: [phone] Family History Family Member Diagnosis Age At [...] older Payers Payer name Insurance type Covered green party ID Authorization(s) [facility] [id number] [facility] [id number] [facility] [id number] Social History Type Description Quantity Date Captured Alcohol Use Details No Caffeine Use Details Unknown Tobacco Use Status Unknown Smoking Status Never smoker Vital Signs Date / Height Weight BMI Pulse Blood Temperature Respiratory Body Head BMI Time: Rate Pressure Rate Surface Circumference percentile Area 247.70 38.7 107/70 lbs 9 mm[Hg] 4:46 kg/m PM eter (2) Chief Complaint And Reason For Visit Unknown Chief Complaint And Reason For Visit Reason For Referral Reason For Referral Unknown Plan Of Care Date Type Action Status Goal Lifestyle education regarding completed diet Appointment Laura Day BOOKED Future Order: Radiology Order Ultrasound OB Follow-up ([id number]) Ordered Future Order: Lab Order Pap Smear [...]
[2017-03-12 06:56] VITALS: RESP 16
[2017-03-12 06:58] VITALS: BMI 39.2
[2017-03-12] MEDS ORDERED: DiphenhydrAMINE 50 MG/ML INJECTION IVP PRN (08:59)
[2017-03-12] MEDS ORDERED: ONDANSETRON 4 MG/2 ML INJECTION IVP PRN (08:59)
[2017-03-12] MEDS ORDERED: ROPIVACAINE 1% 10MG/ML INJ 200 MG, SUFentanil 50 MCG in NS 100 ML EPI PRN (08:59)
[2017-03-12] MEDS ORDERED: NALOXONE 0.4 MG/ML INJECTION IVP PRN (08:59)
--- NOTE | 2017-03-12 08:59 | Anesthesia Preoperative Report ---
Anesthesia Epidural/Spinal Rec - Date and Time Date: 03/12/17 Procedure: Labor Epidural Plan: Epidural - Vital Signs Vital Signs: Temperature 97.7 F 03/12/17 06:59 Pulse Rate 56 L 03/12/17 06:59 Respiratory Rate 16 03/12/17 06:59 Blood Pressure 116/74 03/12/17 06:59 Pulse Oximetry 99 03/12/17 06:59 /Para: P:2 - Medictaions & Allergies Inpatient Medications: Current Medications Acetaminophen (Tylenol) 500 - 1,000 mg PO Q4H PRN PRN Reason: Pain Al Hydroxide/Mg Hydroxide (Maalox Plus) 30 ml PO Q3H PRN PRN Reason: Indigestion Calcium Carbonate (Tums) 500 - 1,000 mg PO Q2H PRN PRN Reason: Indigestion Carboprost Tromethamine (Hemabate) 250 mcg IM O PRN PRN Reason: .Downtime Dextrose/Lactated Ringer's (Dextrose 5%-Lactated Ringers) 1,000 mls @ 125 mls/ hr IV .Q8H PRN PRN Reason: Labor Last Admin: 03/12/17 06:36 Dose: 125 mls/hr Lactated Ringer's (Lactated Ringers) 1,000 mls @ 999 mls/hr IV .Q1H1M PRN Last Admin: 03/12/17 06:35 Dose: 999 mls/hr Oxytocin (Pitocin Drip) 30 unit in 500 mls @ 2 mls/hr IV .Q24H PRN; Protocol PRN Reason: Induction/Augmentation Last Admin: 03/12/17 06:36 Dose: 2 mls/hr Lidocaine HCl (Xylocaine-Mpf 1% Vial) 0.2 mg ID O PRN PRN Reason: IV Start Methylergonovine Maleate (Methergine) 0.2 mg IM O PRN Misoprostol (Cytotec) 800 mcg WI ONCE PRN Allergies/Adverse Reactions: Allergies Allergy/AdvReac Type Severity Reaction Status Date / Time NKDA Allergy Uncoded 05/04/13 17:07 - Home Medications Home Medications: Home Medications Medication Instructions Recorded Confirmed Type Vits W-Ca,Fe,Fa(<1MG) 1 tab PO DAILY #0 05/04/13 History ( Vitamins) - Medical History Respiratory: DENIES: Asthma Cardiovascular: DENIES: Hypertension Gastrointestional: DENIES: Gastroesophageal Reflux Disease Renal/Endocrine: DENIES: Diabetes Mellitus Type 2 Other History: Reports: Now - Surgical History Anesthesia Reactions: None (no history of anesthetics) Hx Family Anesthesia Reaction: No History of Motion Sickness: No - Social History Alcohol Intake Frequency: other (social) - Pertinent Findings Lab Data: CBC and BMP 03/12/17 06:34 - Physical Exam Respiratory Exam: lungs clear, bilateral breath sounds equal Cardiovascular Exam: regular rate and rhythm - Airway Assessment Mallampati Score: II TMD: 2 Fingerbreadths Neck Extension: good Overall Assessment: may be difficult mask vent, may be difficult intubation - ASA ASA Score: 2 - Discussion Discussion: Discussed risks/options/alternatives of anesthesia and questions answered. Patient consents. Nursing pain assessment noted. Anesthesia Discussion: spouse Attestation Statement: Prior to the delivery of any anesthetic medication, I examined the patient, developed the plan, obtained the patient's consent and discussed the risk and benefits of the procedure with the patient/guardian.
[2017-03-12] MEDS ORDERED: INFLUENZA VAC QIV 2017-18 (Fluarix*)(>=3yo) 0.5ml IM ONE (09:58)
--- NOTE | 2017-03-12 11:46 | Labor and Delivery Note ---
DATE OF DELIVERY 03/12/2017 DELIVERY NOTE Laura is a 31-year-old, 4, para 2 at 40 weeks 2 days gestational age, who was being induced with Pitocin due to being past her EDC. I was called emergently because the patient was feeling pushy, her epidural was not set up yet, and Dr. Crawford was in surgery. Upon my arrival the baby was starting to crown. She had a spontaneous vaginal delivery in the PORTER position of a viable female , Apgars 9/9, weight 3460 grams. The name has not been decided yet. There was a nuchal cord x 1 that was delivered. The baby was vigorous at delivery, so she was placed on mom's abdomen and the cord clamping was delayed for more than 2 minutes. The placenta delivered spontaneously. There was a first-degree laceration that was not bleeding, so it was not repaired. Mom and baby tolerated the delivery well. [facility]
[2017-03-12] MEDS ORDERED: HYDROCORTISONE 2.5% CREAM 30gm RECTALLY PRN (12:00)
[2017-03-12] MEDS ORDERED: DiphenhydrAMINE 25 MG CAPSULE PO PRN (12:00)
[2017-03-12] MEDS ORDERED: OXYTOCIN DRIP 30 UNIT/500 ML ML IV SCH (12:00)
[2017-03-12] MEDS ORDERED: HYDROCODONE/APAP 5mg/325mg TABLET PO PRN (12:00)
[2017-03-12] MEDS: IBUPROFEN 800 MG TABLET PO PRN (16:37)
[2017-03-13 00:27] VITALS: O2SAT 100
[2017-03-13 06:31] VITALS: BP 105/60; PULSE 55; TEMP 97.7
--- NOTE | 2017-03-13 07:48 | OB/GYN Progress Note ---
OB-Progress Note Free Text - Date Date: 03/13/17 - Progress Note Progress Note: vss af no c/o desires dc today f/u 5-6wks q&a
--- NOTE | 2017-03-13 07:49 | Discharge Instructions ---
Discharge Plan - Med Rec/Dispo Referrals/Follow Up: Dez Crawford MD [Physician] - 5-6 Weeks Prescriptions: Continue Ibuprofen 800 mg PO Q8H PRN #0 tab PRN Reason: PAIN Vits W-Ca,Fe,Fa(<1MG) ( Vitamins) 1 tab PO DAILY #0 - Disposition 01 Discharged Home, Self-Care
[2017-03-13] MEDS: IBUPROFEN 800 MG TABLET PO PRN (08:01)
[2017-03-13] MEDS ORDERED: DOCUSATE CALCIUM 240 MG CAPSULE PO SCH (09:00)
== END 2017-03-13 12:10 | disposition home or self-care (01) | DRG 775 ==
LOC: MC 06:07
PROVIDERS: ADMIT Obstetrics & Gynecology; ATTEND Obstetrics & Gynecology